=== PATIENT | male | born 1975 | race Caucasian/White ===

== ENCOUNTER 2018-07-28 14:08 | Observation (INO) | payer OTHER ==
[2018-07-28] MEDS ORDERED: Iopamidol 612 MG/ML 100 ML Bottle IVPUSH ONE (14:17)
[2018-07-28] MEDS ORDERED: Sodium Chloride 0.9% 10 ML Syringe FLUSH PRN (14:17)
[2018-07-28] MEDS: Lactated Ringers 1,000 ML IV SCH (14:42)
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
--- NOTE | 2018-07-28 15:06 | CT ---
CT chest Technique: Multiple axial sections were obtained from above the lung apices inferiorly through the lung bases. Artifact is noted within the lower most cuts due to both arms not being elevated. Findings: Mediastinum and hilar regions show no adenopathy. Pulsation artifact is noted within the ascending aorta. No pericardial thickening is seen. Lungs are clear with no pulmonary contusion. No pneumothorax is seen. Vertebral body heights are maintained. Reconstructed sagittal images of the sternum appear intact. No discrete rib fracture is appreciated. Impression: 1. Artifact within the lower most cuts from patient's overlapping arms. 2. Nothing acute is appreciated on CT study of the chest. Diagnostic code #2 CT abdomen and pelvis Technique: Multiple axial sections were obtained from above the dome of the diaphragm inferiorly through the pubic symphysis. Intravenous contrast was utilized. No oral contrast was utilized. Findings: Artifact noted within the upper abdomen due to the patient's arms. Liver shows no discrete abnormality. Spleen appears within normal limits. Left adrenal gland is unremarkable. Right adrenal gland shows a low-density mass showing negative Hounsfield unit measurements and measuring 2.2 cm which is felt compatible with a benign adrenal lesion. Pancreas shows no abnormality. Gallbladder contains no calcified gallstones. Aorta shows no aneurysm. No retroperitoneal adenopathy or mesenteric abnormalities are seen. No pelvic mass or adenopathy is seen. Delayed images were obtained through the abdomen and pelvis which show bilateral contrast excretion of contrast into nondilated ureters. Several small cortical cysts are seen within both kidneys. Contrast noted within the bladder. No contrast extravasation is seen. Bone window settings were reviewed which show no acute osseous abnormality. Impression: 1. Incidental findings. Nothing acute is seen on CT study of the abdomen and pelvis. Diagnostic code #2
--- NOTE | 2018-07-28 15:06 | CT ---
Head CT Technique: Multiple axial sections through the brain were obtained. Intravenous contrast was not utilized. Findings: Mild soft tissue hematoma is seen within the upper posterior right scalp with skin injury. Ventricles along with basal cisterns and sulci over the convexities are within normal limits for the patient's age. No abnormal parenchymal densities are seen. No evidence of intracranial hemorrhage. No midline shift or mass effect is seen. Mucosal thickening is noted within the right side of the sphenoid sinus. Other paranasal sinuses are clear. No acute calvarial abnormality is seen. Impression: 1. Skin injury within the upper right scalp with mild soft tissue hematoma. 2. No acute intracranial abnormality is seen. 3. Sinus finding which is felt to be pre-existing and incidental. Diagnostic code #2
--- NOTE | 2018-07-28 15:06 | CT ---
CT cervical spine Technique: Multiple axial sections through the cervical spine were obtained from above C1 inferiorly to the top of T2. Reconstructed sagittal and coronal images were reviewed. Findings: Vertebral body heights and disc spaces are maintained. Moderate mucosal thickening is seen within the right side of the sphenoid sinus. Vertebral bodies and posterior arches are intact. No fracture is seen. Mild bilateral neural foraminal stenosis is noted at C5-C6. Other neural foramina are patent. No subluxation is seen. Impression: 1. Minimal degenerative change. 2. Nothing acute is seen on CT study of the cervical spine. Diagnostic code #2
--- NOTE | 2018-07-28 16:25 | CR ---
Right tibia and fibula: AP and lateral views of the right tibia and fibula were obtained. Comparison: No previous exam. Slight deformity is noted at the junction of the mid and distal one third diaphysis possibly due to old healed fracture. No acute fracture or other abnormality is seen. Impression: 1. Incidental finding as noted above. Nothing acute is seen on two-view right tibia and fibula exam. Diagnostic code #2
--- NOTE | 2018-07-28 16:25 | CR ---
Bilateral femurs: AP and lateral views of both femurs were obtained. No acute fracture or other abnormality is seen. Impression: 1. Nothing acute is seen on two-view bilateral femur exam. Diagnostic code #1
--- NOTE | 2018-07-28 16:25 | CR ---
Left foot: Two views of the left foot were obtained. Comparison: No prior foot exam. Plantar spur is seen. Benign area of sclerosis is noted within the distal second metatarsal shaft. No discrete fracture or other abnormality is identified. Impression: 1. Plantar spur. Nothing acute is appreciated on two-view left foot exam. Diagnostic code #2
--- NOTE | 2018-07-28 16:25 | CR ---
Left tibia and fibula: AP and lateral views of the left tibia and fibula were obtained. Comparison: No previous study. No fracture or other abnormality is seen. Impression: 1. No abnormality is seen on two-view left tibia and fibula study. Diagnostic code #1
--- NOTE | 2018-07-28 16:25 | CR ---
Right foot: Two portable views of the right foot were obtained. Comparison: No previous study. Joint spaces are maintained. No calcaneal spurs are seen. No fracture or other bony abnormality is seen. Impression: 1. No abnormality is seen on two-view right foot exam. Diagnostic code #1
[2018-07-28] MEDS ORDERED: HYDROmorphone 1 MG/ML Syringe IM ONE (19:16)
[2018-07-28] MEDS ORDERED: HYDROmorphone 1 MG/ML Syringe IVPUSH ONE (19:42)
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
[2018-07-28] MEDS ORDERED: Ondansetron 4 MG Tab.DIS PO PRN (20:06)
[2018-07-28] MEDS ORDERED: Ibuprofen 600 MG Tab PO PRN (20:06)
--- NOTE | 2018-07-28 20:51 | CT ---
Head CT Technique: Multiple axial sections through the brain were obtained. Intravenous contrast was not utilized. Comparison: Prior head CT exam of 07/28/18. Findings: Skin araceli are present within the right posterior frontal scalp. Soft tissue swelling is seen within the forehead and within the right periorbital region. Ventricles along with basal cisterns and sulci over the convexities are within normal limits. No abnormal parenchymal densities are seen. No evidence of intracranial hemorrhage. No midline shift or mass effect is seen. Bone window settings were reviewed which shows no acute calvarial abnormality. Visualized sinuses shows moderate mucosal thickening within the right side of the sphenoid sinus. Other sinuses are clear. Impression: 1. Soft tissue swelling within the right scalp and within the right periorbital region. Skin araceli are seen within the posterior right frontal scalp. 2. Sinus findings most likely pre-existing and chronic and similar to previous head CT. 3. No acute intracranial abnormality is identified. No acute skull abnormality is seen. Diagnostic code #2
[2018-07-28] MEDS: Acetaminophen/HYDROcodone 325-5 MG Tab PO PRN (22:04)
[2018-07-29] MEDS: Lactated Ringers 1,000 ML IV SCH (00:42)
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
[2018-07-29] MEDS ORDERED: Heparin Sodium 5,000 Units/ML Vial SUBCUT SCH (08:00)
[2018-07-29] MEDS: Acetaminophen/HYDROcodone 325-5 MG Tab PO PRN ×2 (08:35→13:04)
[2018-07-29] MEDS ORDERED: Amoxicillin/Clavulanate K 875-125 MG Tab PO SCH (09:00)
--- NOTE | 2018-07-29 10:17 | CT ---
Maxillofacial CT Technique: Multiple axial sections were obtained from above the frontal sinuses inferiorly through the mandible. Reconstructed coronal and sagittal images were obtained. No intravenous contrast was utilized. Findings: Moderate mucosal thickening is seen within the right side of the sphenoid sinus. Other sinuses are clear. No air-fluid levels are seen. Mild nasal septal deviation is seen. Slight deformity of the nasal bone is seen. Uncertain if this is due to an acute or old fracture. Acute fracture is identified within the right side of the mandible anteriorly. Fracture is minimally comminuted. No additional mandibular fracture is seen. No additional facial bone fracture is seen. Impression: 1. Fracture within the anterior right side of the mandible showing minimal comminution. 2. Nasal bone fracture, uncertain if this is acute or old. 3. Moderate mucosal thickening within the right side of the sphenoid sinus. Diagnostic code #3
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
== END 2018-07-29 15:50 | disposition home or self-care (01) ==
LOC: EDBD 14:08 → JD.ED 14:08 → JD.MS 17:23
PROVIDERS: ADMIT Surgery; ATTEND Surgery
DX: S02.69XB Fracture of mandible of other specified site, initial encounter for open fracture (principal); S01.01XA Laceration without foreign body of scalp, initial encounter; F10.929 Alcohol use, unspecified with intoxication, unspecified; V89.2XXA Person injured in unspecified motor-vehicle accident, traffic, initial encounter
CPT/HCPCS: 36415; 70450; 70486; 71260; 72125; 73552; 73590; 73620; 74177; 80053; 80306; 81001; 85007; 85027; 85610; 85730; 93005; 96361; 96372; 96374; 99285; A9270; G0378; G0480; J1170; J1644; J7120; Q9967; 12002; 93010; 96360